=== PATIENT | female | born 1990 | race Hispanic/Latino ===

== ENCOUNTER 2023-11-02 17:57 | Emergency (ER) | payer MEDICAID, OTHER ==
[~2023-11-02] VITALS: Ht 167.6 cm; Wt 79.4 kg
[~2023-11-02 17:57] MED LIST: AEC81 PO; ALBU8.5H8 IH; DEXA6TAB PO; PANT40TA55 PO
[2023-11-02 22:04] LABS: RAPID GROUP A STREP negative (NEGATIVE)
[2023-11-02 22:07] LABS: SARS-CoV-2, RNA, NAAT POSITIVE SARS CoV-2 (NEGATIVE)
[2023-11-02 22:18] LABS: INFLUENZA TYPE A Negative For Type A (NEGATIVE); INFLUENZA TYPE B Negative For Type B (NEGATIVE)
[2023-11-02] MEDS ORDERED: METOCLOPRAMIDE 10 MG/2 ML VIAL IVP ONE (22:30)
[2023-11-02] MEDS ORDERED: LACTATED RINGERS 1000ML 1,000 ML IV ONE (22:30)
[2023-11-02] MEDS ORDERED: BENZONATATE 100 MG CAPSULE PO ONE (22:30)
[2023-11-02] MEDS ORDERED: KETOROLAC 30MG VIAL (30MG/ML) IVP ONE (22:30)
[2023-11-02] MEDS ORDERED: ALBUTEROL 0.083% 2.5 MG/3 ML INH IH ONE (22:30)
[2023-11-02] MEDS ORDERED: FAMOTIDINE 20MG VIAL IV ONE (22:30)
[2023-11-02 22:45] VITALS: PULSE 78; RESP 20
[2023-11-02] MEDS ORDERED: AUD IH (23:03)
[2023-11-02 23:37] VITALS: BP 128/75; PULSE 80; RESP 17; O2SAT 98
== END 2023-11-02 23:38 | disposition home or self-care (01) ==
LOC: EDH 17:57
DX: U07.1 COVID-19 (principal); Z79.82 Long term (current) use of aspirin; Z79.899 Other long term (current) drug therapy
CPT/HCPCS: 99285; 96374; 71045; 96375; 87635; 96361; 87880; 87804 ×2; 93005; 94640; C9803; J7120; J3490; J1885; J2765